=== PATIENT | male | born 1945 | race Caucasian/White ===

== ENCOUNTER → 2018-02-02 11:29 | Outpatient (RCR) | payer MEDICARE, SELFPAY ==
--- NOTE | 2013-09-05 10:34 | TODAY_ITS ---
To: PCP AND CCC Reason for today's visit: [employer] Plan: 09/02/13 - PT COMPLETED APPLICATION AND PAID FEE FOR [employer]. PT WILL BE DOING THE DIABETES EXERCISE PROGRAM. [employer] IDEAS FOR PHYSICAL ACTIVITY AFTER THE PROGRAM ENDS. NO OTHER NEEDS AT THIS TIME. Action Plan: Chronic Condition: Referred to:
== END ==
LOC: CCT 09-02 11:00
PROVIDERS: PCP Nurse Practitioner Adult Health; Visit Provider Family Medicine
DX: 799.89 (principal)

== ENCOUNTER 2018-05-15 19:51 | Emergency (ER) | payer MEDICARE, SELFPAY ==
[2018-05-15 19:56] VITALS: BP 157/64; PULSE 80; RESP 16; TEMP 36.6; O2SAT 97
--- NOTE | 2018-05-15 20:23 | DI.RAD_ITS ---
SYMPTOMS/DIAGNOSIS: PAIN, SWELLING RIGHT ANKLE: Three views. No priors for comparison. No acute fracture or dislocation is seen. Degenerative changes are seen about the ankle. Spurs are seen at the posterior calcaneus. Vascular calcifications are seen. There is generalized soft tissue swelling about the ankle. IMPRESSION: 1. No acute fracture or dislocation. 2. Generalized soft tissue swelling about the ankle.
[2018-05-15 20:45] LABS: Abs Immature Grans 0.03 k/cumm (0.0-0.09); Absolute Basophil Count 0.03 k/cumm (0.0-0.2); Absolute Eosinophil Count 0.21 k/cumm (0.0-0.7); Absolute Lymphocyte Count 1.82 k/cumm (1.2-3.4); Absolute Monocyte Count 0.75 k/cumm (0.11-0.7); Absolute Neutrophil Count 6.36 k/cumm (1.2-6.7); Basophils % 0.3; Eosinophils % 2.3; HCT 37.3 % (40.0-50.0); HGB 12.5 g/dL (13.5-17.5); Immature Grans % 0.3; Lymphocytes % 19.8; Mean Corp. HGB Concentration 33.5 g/dL (32.0-36.0); Mean Corpuscular Hemoglobin 30.7 pg (27.0-33.0); Mean Corpuscular Volume 91.6 fL (80-95); Mean Platelet Volume 9.6 fL (8.0-11.0); Monocytes % 8.2; Neutrophils % 69.1; Platelet Count 195 x1000/uL (130-400); RBC 4.07 m/cumm (4.50-6.00)
[2018-05-15 20:57] LABS: ALT 38 U/L (12-78); AST 15 U/L (15-37); Alkaline Phosphatase 23 U/L (46-116); Anion Gap 11.1 mmol/L (3-11); BUN 17 mg/dL (7-18); Bilirubin, Total 0.4 mg/dL (0.2-1.0); CO2 26.9 mmol/L (21.0-32.0); CREATININE 1.75 mg/dL (0.70-1.30); Calcium 9.4 mg/dL (8.5-10.1); Chloride 98 mmol/L (98-107); Estimated GFR 38.62 (mL/min/1.73m2); Glucose 131 mg/dL (70-100); Potassium 4.8 mmol/L (3.5-5.1); Sodium 136 mmol/L (136-145); Total Protein 8.5 g/dL (6.4-8.2)
[2018-05-15 20:59] LABS: INR 1.1 (1.0-3.5); PTT Activated 26.1 sec (21.0-31.4); Prothrombin Time 10.3 sec (9.3-10.8)
[2018-05-15 21:03] LABS: NT-proBNP 73 pg/mL
[2018-05-15 21:16] LABS: D-Dimer 511 ng/mlFEU (<500)
--- NOTE | 2018-05-15 21:53 | W.ED.GENAD ---
Discharge Plan Disposition Patient Disposition: HOME Condition: Stable Discharge Details Chief Complaint: Orthopedic Clinical Impression: Osteoarthritis of ankle, right, Edema of lower extremity, Decreased calculated GFR Primary Care Provider: Laura Nuñez ED Provider: Oleksandr Lindsay Home Meds and New Rx's Prescriptions: Continue clopidogrel [Plavix] 75 MG tablet 75 mg PO DAILY RF: 0 aspirin [Aspir-81] 81 MG tablet,delayed release (DR/EC) 81 mg PO DAILY RF: 0 lisinopril 20 MG tablet 20 mg PO DAILY RF: 0 nitroglycerin [Nitrostat] 0.4 MG tablet, sublingual 0.4 mg Sublingual ONCE RF: 0 omeprazole 20 MG capsule,delayed release(DR/EC) 40 mg PO HS RF: 0 furosemide 20 MG tablet 20 mg PO DAILY RF: 0 albuterol sulfate [Ventolin HFA] 8 GM HFA aerosol inhaler 1 - 2 puff Inhalation Q6H PRN RF: 0 glipizide 5 MG tablet 5 mg PO BID RF: 0 ISOSORBIDE MONONITRATE 30 MG TAB.ER.24H 60 mg PO DAILY RF: 0 metformin 500 MG tablet 1,000 mg PO BID RF: 0 acetaminophen [Arthritis Pain Reliever] 650 MG tablet extended release 650 mg PO PRN PRNRF: 0 ranitidine HCl [Zantac Maximum Strength] 150 MG tablet 150 mg PO BID RF: 0 flaxseed 340 GM powder 340 gm PO DAILY RF: 0 metoprolol succinate 100 mg Tablet Extended Release 24 Hr 100 mg PO DAILY RF: 0 ezetimibe 10 mg Tablet 10 mg PO DAILY RF: 0 Discharge Instructions Instructions: Impaired Kidney Function (ED), Arthritis (ED) Additional Instructions: He may continue to use acetaminophen, apply ice, and rest the extremity as needed. It is encouraged that you obtain a follow-up appointment with your primary care provider within the next week for recheck of your kidney function. Continue to take your medications as prescribed specifically your furosemide/Lasix Referrals: [facility] [Outside] - 1 week (Follow up with primary care office for recheck of your swelling along with GFR retesting) Medical Decision Making Patient presenting to the emergency department for chief complaint of right ankle pain. Patient states that this seems to have occurred after walking for an extended period of time on Monday, 5 days ago. Patient denies any specific injury or trauma. Patient does state that pain radiates somewhat up in the calf. Patient denies any chest pain, shortness of breath, difficulty breathing, syncope. Physical exam shows tenderness to the lateral malleolus, posterior ankle, and Achilles. Given that patient has a significant heart history plan to do BNP testing, CMP and CBC with specifically looking at GFR, d-dimer, and radiological imaging. Patient did state that he took acetaminophen just prior to arrival that pain is tolerable at this point. Ice was placed upon ankle to help relieve any further swelling discomfort. I am highly suspicious of more arthritic nature to discomfort but of consideration is decreased renal function, CHF, DVT. Review of labs shows a decreased GFR and when compared to previous results from the [facility] decrease is not severe but patient has had trending downward renal function. Also of notation is baseline CBC, within normal limits BNP, and appropriate d-dimer when adjusting for age. Review of radiological imaging shows arthritic changes and some soft tissue swelling otherwise no other acute findings are noted. Patient reassessed and states that he has not been wearing his compression stockings due to them being overly snug but states that he could resume wearing those if recommended. I did inform patient that that would be beneficial to wear these otherwise I encouraged him to continue to rest and elevate the extremity and advance activity as tolerated along with taking acetaminophen as needed for discomfort. Patient was placed up on care management list for assistance in arranging a follow-up appointment with primary care in the next week to have reassessment along with GFR rechecked due to trending downward labs. Patient states clear understanding that he may return for any new or worsening symptoms and emergent needs to return to emergency department was clearly discussed with patient. After discussion of diagnosis and plan of care patient has no further needs, questions, or concerns and states clear understanding to return to the emergency department for any worsening symptoms. HPI General Mode of arrival: wheelchair. Date/Time Provider Initiated Documentation: 05/15/18 20:02. Limitations to Documentation: no limitations. Information obtained by: patient and RN notes reviewed. History of Present Illness 72 year old M presents to the emergency department with the chief complaint of right ankle pain ans swelling, described as moderate, with intensity rated at 6. Quality is described as aching, and is localized to the right and lower extremity. Patient proximal. Patient started experiencing this day(s) (5) and it has been constant. Rest improves symptom(s), Movement worsens symptoms . Patient notes no other symptoms.. Patient did receive the following treatments prior to arrival, other Related Data Home Medications Medication Instructions Recorded Confirmed Isosorbide Mononitrate 60 mg PO DAILY tab-cap 10/22/13 05/15/18 albuterol sulfate [Ventolin HFA] 1 - 2 puff INHALATION Q6H PRN 10/22/13 05/15/18 inhaler aspirin [Aspir-81] 81 mg PO DAILY tab-cap 10/22/13 05/15/18 clopidogrel [Plavix] 75 mg PO DAILY tab-cap 10/22/13 05/15/18 furosemide 20 mg PO DAILY tab-cap 10/22/13 05/15/18 glipizide 5 mg PO BID tab-cap 10/22/13 05/15/18 lisinopril 20 mg PO DAILY tab-cap 10/22/13 05/15/18 nitroglycerin [Nitrostat] 0.4 mg SUBLINGUAL ONCE tab-cap 10/22/13 05/15/18 omeprazole 40 mg PO HS tab-cap 10/22/13 05/15/18 metformin 1,000 mg PO BID tab-cap 11/06/14 05/15/18 acetaminophen [Arthritis Pain 650 mg PO PRN PRN 12/08/15 05/15/18 Reliever] flaxseed 340 gm PO DAILY 12/08/15 05/15/18 ranitidine HCl [Zantac Maximum 150 mg PO BID 12/08/15 05/15/18 Strength] ezetimibe 10 mg PO DAILY 05/15/18 05/15/18 metoprolol succinate 100 mg PO DAILY 05/15/18 05/15/18 Allergies Allergy/AdvReac Type Severity Reaction Status Date / Time [id number] Reductase AdvReac Intermediate Other (See Unverified 05/15/18 20:05 Inhibitor Comment) General Stated Complaint: Orthopedic MEKHI: 3 Review of Systems Constitutional Denies chills, Denies fever(s) and Denies headache(s) ENT Denies headache(s) Cardiovascular Denies chest pain, Denies irregular heart rhythm, Denies claudication, Reports leg edema, Denies lightheadedness and Denies dyspnea Respiratory Denies dyspnea Gastrointestinal Denies abdominal pain Musculoskeletal Reports as per HPI, Reports arthralgias and Denies numbness Neurologic Denies confusion, Denies headache(s) and Denies numbness Psychiatric Denies confusion PFSH Acute myocardial infarction Coronary arteriosclerosis Diabetes mellitus Essential hypertension Gastroesophageal reflux disease Hyperlipidemia Morbid obesity Obstructive sleep apnea syndrome Polyp of colon Psoriasis Coronary artery Bypass Graft Medical History Acute myocardial infarction Coronary arteriosclerosis Diabetes mellitus Essential hypertension Gastroesophageal reflux disease Hyperlipidemia Morbid obesity Obstructive sleep apnea syndrome Polyp of colon Psoriasis Social History Smoking/Tobacco Use Status: Former Tobacco Use Surgical History Coronary artery Bypass Graft Social History Smoking/Tobacco Use Status: Former Tobacco Use Exam Const General: cooperative, healthy appearing, comfortable and no acute distress Orientation: alert, awake and oriented x3 Resp Effort & Inspection: normal respiratory effort and able to speak in complete sentences Auscultation: clear to auscultation bilaterally Cardio Rate: regular rate Rhythm: regular rhythm Heart Sounds: S1 normal and S2 normal Pulses: normal peripheral pulses Neuro General: alert, awake, oriented x3, moves all extremities and no focal motor deficits Extrem Right lower extremity: knee Details: normal to inspection; no tenderness, lower leg Details: normal to inspection and non-pitting edema Details: 1+; no erythema, no tenderness, no localized swelling, no ecchymosis and no deformity, ankle Details: tenderness Location: of the lateral malleolus, of the achilles tendon and posteriorly, edema Details: non-pitting and 1+ and normal ROM; no unusual warmth, no abrasions, no crepitus and achilles tendon exam normal and foot Details: normal capillary refill, normal to inspection, toes with normal ROM, no edema and vascular exam Details: dorsalis pedis pulse present, posterior tibial pulse present and normal capillary refill; no tenderness and no unusual warmth Course Vital Signs Temperature 36.6 C 05/15/18 19:56 Pulse 80 05/15/18 19:56 Respiratory Rate 16 05/15/18 19:56 Blood Pressure 157/64 H 05/15/18 19:56 Pulse Oximetry 97 05/15/18 19:56 Temperature 36.6 C 05/15/18 19:56 Temperature Source Skin 05/15/18 19:56 Pulse 80 05/15/18 19:56 Respiratory Rate 16 05/15/18 19:56 Respiratory Effort 05/15/18 20:01 Blood Pressure 157/64 H 05/15/18 19:56 Blood Pressure Position Sitting 05/15/18 19:56 Pulse Oximetry 97 05/15/18 19:56 Oxygen Delivery Method Room Air 05/15/18 19:56 Oxygen Flow Rate 0 05/15/18 19:56 Pain Level 9 05/15/18 19:56 Lab/Test Results Lab/Test Results: Laboratory Tests Range/Units 05/15/18 05/15/18 05/15/18 20:40 20:40 20:40 WBC (4.4-10.8) k/cumm 9.20 RBC (4.50-6.00) m/cumm 4.07 L Hgb (13.5-17.5) g/dL 12.5 L Hct (40.0-50.0) % 37.3 L MCV (80-95) fL 91.6 MCH (27.0-33.0) pg 30.7 MCHC (32.0-36.0) g/dL 33.5 RDW (11.8-14.1) % 15.0 H Plt Count (130-400) x1000/uL 195 MPV (8.0-11.0) fL 9.6 Immature Gran % 0.3 Neutrophils % 69.1 Lymphocytes % 19.8 Monocytes % 8.2 Eosinophils % 2.3 Basophils % 0.3 Absolute Neutrophils (1.2-6.7) k/cumm 6.36 Absolute Lymphocytes (1.2-3.4) k/cumm 1.82 Absolute Monocytes (0.11-0.7) k/cumm 0.75 H Absolute Eosinophils (0.0-0.7) k/cumm 0.21 Absolute Basophils (0.0-0.2) k/cumm 0.03 PT (9.3-10.8) sec 10.3 INR (1.0-3.5) 1.1 APTT (21.0-31.4) sec 26.1 D-Dimer (<500) ng/mlFEU 511 H Sodium (136-145) mmol/L 136 Potassium (3.5-5.1) mmol/L 4.8 Chloride (98-107) mmol/L 98 Carbon Dioxide (21.0-32.0) mmol/L 26.9 Anion Gap (3-11) mmol/L 11.1 H BUN (7-18) mg/dL 17 Creatinine (0.70-1.30) mg/dL 1.75 H Estimated GFR/1.73 m2 (mL/min/1.73m2) 38.62 Glucose (70-100) mg/dL 131 H Calcium (8.5-10.1) mg/dL 9.4 Total Bilirubin (0.2-1.0) mg/dL 0.4 AST (15-37) U/L 15 ALT (12-78) U/L 38 Alkaline Phosphatase (46-116) U/L 23 L NT-Pro-B Natriuret Pep ( - 299) pg/mL Total Protein (6.4-8.2) g/dL 8.5 H Albumin (3.4-5.0) g/dL 4.0 Range/Units 05/15/18 20:40 WBC (4.4-10.8) k/cumm RBC (4.50-6.00) m/cumm Hgb (13.5-17.5) g/dL Hct (40.0-50.0) % MCV (80-95) fL MCH (27.0-33.0) pg MCHC (32.0-36.0) g/dL RDW (11.8-14.1) % Plt Count (130-400) x1000/uL MPV (8.0-11.0) fL Immature Gran % Neutrophils % Lymphocytes % Monocytes % Eosinophils % Basophils % Absolute Neutrophils (1.2-6.7) k/cumm Absolute Lymphocytes (1.2-3.4) k/cumm Absolute Monocytes (0.11-0.7) k/cumm Absolute Eosinophils (0.0-0.7) k/cumm Absolute Basophils (0.0-0.2) k/cumm PT (9.3-10.8) sec INR (1.0-3.5) APTT (21.0-31.4) sec D-Dimer (<500) ng/mlFEU Sodium (136-145) mmol/L Potassium (3.5-5.1) mmol/L Chloride (98-107) mmol/L Carbon Dioxide (21.0-32.0) mmol/L Anion Gap (3-11) mmol/L BUN (7-18) mg/dL Creatinine (0.70-1.30) mg/dL Estimated GFR/1.73 m2 (mL/min/1.73m2) Glucose (70-100) mg/dL Calcium (8.5-10.1) mg/dL Total Bilirubin (0.2-1.0) mg/dL AST (15-37) U/L ALT (12-78) U/L Alkaline Phosphatase (46-116) U/L NT-Pro-B Natriuret Pep ( - 299) pg/mL 73 Total Protein (6.4-8.2) g/dL Albumin (3.4-5.0) g/dL
--- NOTE | 2018-05-15 21:57 | DI.VRAD_ITS ---
EXAM: XR Right Ankle Complete, 3 or more Views EXAM DATE/TIME: 05/15/2018 8:26 PM CLINICAL HISTORY: 72 years old, male; Condition or disease; Other: Pain, swelling TECHNIQUE: XR Right ankle 3 or more views. COMPARISON: No relevant prior studies available. FINDINGS: There is soft tissue swelling about the ankle. No fracture is identified. There is some spurring along the medial gutter. There is no joint effusion. The talar dome and subtalar joints are normal. Plantar and Achilles tendon spurs of the calcaneus are present. There is also some spurring along the dorsal surface of the talus. Vascular calcifications are present. IMPRESSION: 1. Arthritic changes. 2. Soft tissue swelling. 3. No fracture or bony destruction. Dictated and Authenticated by: Gustavo Newberry MD. Ordering:EDER WHITE MD
--- NOTE | 2018-05-15 21:59 | ED.GENADUL_ITS ---
Discharge Plan Disposition Patient Disposition: HOME Condition: Stable Discharge Details Chief Complaint: Orthopedic Clinical Impression: Osteoarthritis of ankle, right, Edema of lower extremity, Decreased calculated GFR Primary Care Provider: Laura Nuñez ED Provider: Oleksandr Lindsay Home Meds and New Rx's Prescriptions: Continue clopidogrel [Plavix] 75 MG tablet 75 mg PO DAILY RF: 0 aspirin [Aspir-81] 81 MG tablet,delayed release (DR/EC) 81 mg PO DAILY RF: 0 lisinopril 20 MG tablet 20 mg PO DAILY RF: 0 nitroglycerin [Nitrostat] 0.4 MG tablet, sublingual 0.4 mg Sublingual ONCE RF: 0 omeprazole 20 MG capsule,delayed release(DR/EC) 40 mg PO HS RF: 0 furosemide 20 MG tablet 20 mg PO DAILY RF: 0 albuterol sulfate [Ventolin HFA] 8 GM HFA aerosol inhaler 1 - 2 puff Inhalation Q6H PRN RF: 0 glipizide 5 MG tablet 5 mg PO BID RF: 0 ISOSORBIDE MONONITRATE 30 MG TAB.ER.24H 60 mg PO DAILY RF: 0 metformin 500 MG tablet 1,000 mg PO BID RF: 0 acetaminophen [Arthritis Pain Reliever] 650 MG tablet extended release 650 mg PO PRN PRNRF: 0 ranitidine HCl [Zantac Maximum Strength] 150 MG tablet 150 mg PO BID RF: 0 flaxseed 340 GM powder 340 gm PO DAILY RF: 0 metoprolol succinate 100 mg Tablet Extended Release 24 Hr 100 mg PO DAILY RF: 0 ezetimibe 10 mg Tablet 10 mg PO DAILY RF: 0 Discharge Instructions Instructions: Impaired Kidney Function (ED), Arthritis (ED) Additional Instructions: He may continue to use acetaminophen, apply ice, and rest the extremity as needed. It is encouraged that you obtain a follow-up appointment with your primary care provider within the next week for recheck of your kidney function. Continue to take your medications as prescribed specifically your furosemide/ Lasix Referrals: [facility] [Outside] - 1 week (Follow up with primary care office for recheck of your swelling along with GFR retesting) Medical Decision Making Patient presenting to the emergency department for chief complaint of right ankle pain. Patient states that this seems to have occurred after walking for an extended period of time on Monday, 5 days ago. Patient denies any specific injury or trauma. Patient does state that pain radiates somewhat up in the calf. Patient denies any chest pain, shortness of breath, difficulty breathing , syncope. Physical exam shows tenderness to the lateral malleolus, posterior ankle, and Achilles. Given that patient has a significant heart history plan to do BNP testing, CMP and CBC with specifically looking at GFR, d-dimer, and radiological imaging. Patient did state that he took acetaminophen just prior to arrival that pain is tolerable at this point. Ice was placed upon ankle to help relieve any further swelling discomfort. I am highly suspicious of more arthritic nature to discomfort but of consideration is decreased renal function , CHF, DVT. Review of labs shows a decreased GFR and when compared to previous results from the [place] decrease is not severe but patient has had trending downward renal function. Also of notation is baseline CBC, within normal limits BNP, and appropriate d-dimer when adjusting for age. Review of radiological imaging shows arthritic changes and some soft tissue swelling otherwise no other acute findings are noted. Patient reassessed and states that he has not been wearing his compression stockings due to them being overly snug but states that he could resume wearing those if recommended. I did inform patient that that would be beneficial to wear these otherwise I encouraged him to continue to rest and elevate the extremity and advance activity as tolerated along with taking acetaminophen as needed for discomfort. Patient was placed up on care management list for assistance in arranging a follow-up appointment with primary care in the next week to have reassessment along with GFR rechecked due to trending downward labs. Patient states clear understanding that he may return for any new or worsening symptoms and emergent needs to return to emergency department was clearly discussed with patient. After discussion of diagnosis and plan of care patient has no further needs, questions, or concerns and states clear understanding to return to the emergency department for any worsening symptoms. HPI General Mode of arrival: wheelchair . Date/Time Provider Initiated Documentation: 05/15/18 20:02 . Limitations to Documentation: no limitations . Information obtained by: patient and RN notes reviewed . History of Present Illness 72 year old M presents to the emergency department with the chief complaint of right ankle pain ans swelling, described as moderate, with intensity rated at 6. Quality is described as aching, and is localized to the right and lower extremity. Patient proximal. Patient started experiencing this day(s) (5) and it has been constant. Rest improves symptom(s), Movement worsens symptoms . Patient notes no other symptoms.. Patient did receive the following treatments prior to arrival, other Related Data Home Medications Medication Instructions Recorded Confirmed Isosorbide Mononitrate 60 mg PO DAILY tab-cap 10/22/13 05/15/18 albuterol sulfate [Ventolin HFA] 1 - 2 puff INHALATION Q6H PRN 10/22/13 05/15/18 inhaler aspirin [Aspir-81] 81 mg PO DAILY tab-cap 10/22/13 05/15/18 clopidogrel [Plavix] 75 mg PO DAILY tab-cap 10/22/13 05/15/18 furosemide 20 mg PO DAILY tab-cap 10/22/13 05/15/18 glipizide 5 mg PO BID tab-cap 10/22/13 05/15/18 lisinopril 20 mg PO DAILY tab-cap 10/22/13 05/15/18 nitroglycerin [Nitrostat] 0.4 mg SUBLINGUAL ONCE tab-cap 10/22/13 05/15/18 omeprazole 40 mg PO HS tab-cap 10/22/13 05/15/18 metformin 1,000 mg PO BID tab-cap 11/06/14 05/15/18 acetaminophen [Arthritis Pain 650 mg PO PRN PRN 12/08/15 05/15/18 Reliever] flaxseed 340 gm PO DAILY 12/08/15 05/15/18 ranitidine HCl [Zantac Maximum 150 mg PO BID 12/08/15 05/15/18 Strength] ezetimibe 10 mg PO DAILY 05/15/18 05/15/18 metoprolol succinate 100 mg PO DAILY 05/15/18 05/15/18 Allergies Allergy/AdvReac Type Severity Reaction Status Date / Time [id number] Reductase AdvReac Intermediate Other (See Unverified 05/15/18 20 :05 Inhibitor Comment) General Stated Complaint: Orthopedic MEKHI: 3 Review of Systems Constitutional Denies chills, Denies fever(s) and Denies headache(s) ENT Denies headache(s) Cardiovascular Denies chest pain, Denies irregular heart rhythm, Denies claudication, Reports leg edema, Denies lightheadedness and Denies dyspnea Respiratory Denies dyspnea Gastrointestinal Denies abdominal pain Musculoskeletal Reports as per HPI, Reports arthralgias and Denies numbness Neurologic Denies confusion, Denies headache(s) and Denies numbness Psychiatric Denies confusion PFSH Acute myocardial infarction Coronary arteriosclerosis Diabetes mellitus Essential hypertension Gastroesophageal reflux disease Hyperlipidemia Morbid obesity Obstructive sleep apnea syndrome Polyp of colon Psoriasis Coronary artery Bypass Graft Medical History Acute myocardial infarction Coronary arteriosclerosis Diabetes mellitus Essential hypertension Gastroesophageal reflux disease Hyperlipidemia Morbid obesity Obstructive sleep apnea syndrome Polyp of colon Psoriasis Social History Smoking/Tobacco Use Status: Former Tobacco Use Surgical History Coronary artery Bypass Graft Social History Smoking/Tobacco Use Status: Former Tobacco Use Exam Const General: cooperative, healthy appearing, comfortable and no acute distress Orientation: alert, awake and oriented x3 Resp Effort & Inspection: normal respiratory effort and able to speak in complete sentences Auscultation: clear to auscultation bilaterally Cardio Rate: regular rate Rhythm: regular rhythm Heart Sounds: S1 normal and S2 normal Pulses: normal peripheral pulses Neuro General: alert, awake, oriented x3, moves all extremities and no focal motor deficits Extrem Right lower extremity: knee Details: normal to inspection; no tenderness, lower leg Details: normal to inspection and non-pitting edema Details: 1+; no erythema , no tenderness, no localized swelling, no ecchymosis and no deformity, ankle Details: tenderness Location: of the lateral malleolus, of the achilles tendon and posteriorly, edema Details: non-pitting and 1+ and normal ROM; no unusual warmth, no abrasions, no crepitus and achilles tendon exam normal and foot Details: normal capillary refill, normal to inspection, toes with normal ROM, no edema and vascular exam Details: dorsalis pedis pulse present, posterior tibial pulse present and normal capillary refill; no tenderness and no unusual warmth Course Vital Signs Temperature 36.6 C 05/15/18 19:56 Pulse 80 05/15/18 19:56 Respiratory Rate 16 05/15/18 19:56 Blood Pressure 157/64 H 05/15/18 19:56 Pulse Oximetry 97 05/15/18 19:56 Temperature 36.6 C 05/15/18 19:56 Temperature Source Skin 05/15/18 19:56 Pulse 80 05/15/18 19:56 Respiratory Rate 16 05/15/18 19:56 Respiratory Effort 05/15/18 20:01 Blood Pressure 157/64 H 05/15/18 19:56 Blood Pressure Position Sitting 05/15/18 19:56 Pulse Oximetry 97 05/15/18 19:56 Oxygen Delivery Method Room Air 05/15/18 19:56 Oxygen Flow Rate 0 05/15/18 19:56 Pain Level 9 05/15/18 19:56 Lab/Test Results Lab/Test Results: Laboratory Tests Range/Units 05/15/18 05/15/18 05/15/18 20:40 20:40 20:40 WBC (4.4-10.8) k/cumm 9.20 RBC (4.50-6.00) m/cumm 4.07 L Hgb (13.5-17.5) g/dL 12.5 L Hct (40.0-50.0) % 37.3 L MCV (80-95) fL 91.6 MCH (27.0-33.0) pg 30.7 MCHC (32.0-36.0) g/dL 33.5 RDW (11.8-14.1) % 15.0 H Plt Count (130-400) x1000/uL 195 MPV (8.0-11.0) fL 9.6 Immature Gran % 0.3 Neutrophils % 69.1 Lymphocytes % 19.8 Monocytes % 8.2 Eosinophils % 2.3 Basophils % 0.3 Absolute Neutrophils (1.2-6.7) k/cumm 6.36 Absolute Lymphocytes (1.2-3.4) k/cumm 1.82 Absolute Monocytes (0.11-0.7) k/cumm 0.75 H Absolute Eosinophils (0.0-0.7) k/cumm 0.21 Absolute Basophils (0.0-0.2) k/cumm 0.03 PT (9.3-10.8) sec 10.3 INR (1.0-3.5) 1.1 APTT (21.0-31.4) sec 26.1 D-Dimer (<500) ng/mlFEU 511 H Sodium (136-145) mmol/L 136 Potassium (3.5-5.1) mmol/L 4.8 Chloride (98-107) mmol/L 98 Carbon Dioxide (21.0-32.0) mmol/L 26.9 Anion Gap (3-11) mmol/L 11.1 H BUN (7-18) mg/dL 17 Creatinine (0.70-1.30) mg/dL 1.75 H Estimated GFR/1.73 m2 (mL/min/1.73m2) 38.62 Glucose (70-100) mg/dL 131 H Calcium (8.5-10.1) mg/dL 9.4 Total Bilirubin (0.2-1.0) mg/dL 0.4 AST (15-37) U/L 15 ALT (12-78) U/L 38 Alkaline Phosphatase (46-116) U/L 23 L NT-Pro-B Natriuret Pep ( - 299) pg/mL Total Protein (6.4-8.2) g/dL 8.5 H Albumin (3.4-5.0) g/dL 4.0 Range/Units 05/15/18 20:40 WBC (4.4-10.8) k/cumm RBC (4.50-6.00) m/cumm Hgb (13.5-17.5) g/dL Hct (40.0-50.0) % MCV (80-95) fL MCH (27.0-33.0) pg MCHC (32.0-36.0) g/dL RDW (11.8-14.1) % Plt Count (130-400) x1000/uL MPV (8.0-11.0) fL Immature Gran % Neutrophils % Lymphocytes % Monocytes % Eosinophils % Basophils % Absolute Neutrophils (1.2-6.7) k/cumm Absolute Lymphocytes (1.2-3.4) k/cumm Absolute Monocytes (0.11-0.7) k/cumm Absolute Eosinophils (0.0-0.7) k/cumm Absolute Basophils (0.0-0.2) k/cumm PT (9.3-10.8) sec INR (1.0-3.5) APTT (21.0-31.4) sec D-Dimer (<500) ng/mlFEU Sodium (136-145) mmol/L Potassium (3.5-5.1) mmol/L Chloride (98-107) mmol/L Carbon Dioxide (21.0-32.0) mmol/L Anion Gap (3-11) mmol/L BUN (7-18) mg/dL Creatinine (0.70-1.30) mg/dL Estimated GFR/1.73 m2 (mL/min/1.73m2) Glucose (70-100) mg/dL Calcium (8.5-10.1) mg/dL Total Bilirubin (0.2-1.0) mg/dL AST (15-37) U/L ALT (12-78) U/L Alkaline Phosphatase (46-116) U/L NT-Pro-B Natriuret Pep ( - 299) pg/mL 73 Total Protein (6.4-8.2) g/dL Albumin (3.4-5.0) g/dL
[2018-05-15 22:50] VITALS: BP 145/72; PULSE 84; RESP 16; TEMP 36.6; O2SAT 97
== END 2018-05-15 22:50 | disposition home or self-care (01) ==
PROVIDERS: Emergency Provider Nurse Practitioner Family; PCP Nurse Practitioner Adult Health
DX: M19.071 Primary osteoarthritis, right ankle and foot (principal); R60.0 Localized edema; R94.4 Abnormal results of kidney function studies
CPT/HCPCS: 36415; 80053; 99283; 73610; 83880; 85025; 85379; 85610; 85730

== ENCOUNTER → 2018-11-29 09:40 | Outpatient (BNVA) | payer MEDICARE, SELFPAY | PROVIDERS: PCP Nurse Practitioner Adult Health; Referring Provider Physician Assistant Medical; Visit Provider Psychiatry & Neurology Neurology | DX: G25.0 Essential tremor (principal); H02.402 Unspecified ptosis of left eyelid; E11.9 Type 2 diabetes mellitus without complications; Z79.84 Long term (current) use of oral hypoglycemic drugs; I10 Essential (primary) hypertension | CPT/HCPCS: 99215 ==

== ENCOUNTER 2019-01-25 01:02 | Outpatient (CLI) | payer OTHER, MEDICARE, SELFPAY ==
--- NOTE | 2019-01-25 12:14 | DI.CT_ITS ---
SYMPTOM/DIAGNOSIS: 2 WEEK MALAISE. RT NECK SWELLING CT BRAIN: Noncontrast. No priors. The ventricles and sulci are consistent with the patient's age. There are areas of decreased attenuation in the white matter most consistent with small vessel ischemic disease. No acute territorial infarct, hemorrhage, midline shift or mass effect is identified. The ventricles are within normal limits. The visualized paranasal sinuses are clear as are the mastoid air cells. The calvarium is intact. IMPRESSION: Age appropriate cerebral atrophy and small vessel ischemic disease. No acute intracranial process.
[2019-01-25] MEDS: Omnipaque 350 MG/ML 100 ML BTL IJ (12:16)
--- NOTE | 2019-01-25 12:18 | DI.CT_ITS ---
SYMPTOM/DIAGNOSIS: 2 WEEK MALAISE, RT NECK SWELLING CT NECK: CT scan of the neck was performed following the uneventful administration of intravenous contrast material. The visualized intracranial structures are unremarkable. The orbits and retro orbital soft tissues are unremarkable. There is mild mucosal thickening seen in the left maxillary sinus. The remaining visualized paranasal sinuses are clear. No fluid levels are seen. The mastoid air cells are well pneumatized. The parotid, submandibular and thyroid glands are grossly unremarkable. No significant cervical adenopathy is present. The nasopharynx, oral pharynx, hypopharynx and larynx are unremarkable as is the retropharyngeal space. No evidence of a solid or cystic soft tissue mass is present. The lung apices are clear. Degenerative changes are seen in the spine. IMPRESSION: No acute abnormality.
== END 2019-01-25 01:22 ==
PROVIDERS: PCP Physician Assistant Medical; Visit Provider Nurse Practitioner Gerontology
DX: R22.1 Localized swelling, mass and lump, neck (principal); R53.81 Other malaise; G31.89 Other specified degenerative diseases of nervous system
CPT/HCPCS: 70491; 70450; J3490

== ENCOUNTER 2021-10-01 11:31 | Outpatient (REF) | payer MEDICARE, SELFPAY ==
--- NOTE | 2021-10-01 11:00 | SKI_PTH ---
PATIENT: Benjamin Miller LOC: [facility] U#:[id number] AGE/SX: 76/M ROOM: RE10/01/[address]: PRABHAKAR Mendoza : 1945 BED: DIS: 10/01/2021 SPEC #: [id number] RECD: 10/01/21 17:26 STATUS: TRINI RENataly #: [id number] DOROTHY: 10/01/21 11:[address]: Sergo Ross DEPT: Surgical Specimen RECD BY: Estefany Carter ENTERED: 10/01/21 17:26 SP TYPE: TOBY GUERRA DR: Chirag Tobar Tissues: 1 - SKIN BIOPSY(SHAVE/PUNCH) Procedures: SKIN LEVEL 4 Comments: [id number]
== END 2021-10-01 11:32 | disposition home or self-care (01) ==
LOC: LBN 11:31
PROVIDERS: PCP Physician Assistant Medical; Visit Provider Physician Assistant
DX: L57.0 Actinic keratosis (principal)
CPT/HCPCS: 88305

== ENCOUNTER 2021-10-07 22:30 | Observation (INO) | payer MEDICARE, SELFPAY ==
[2021-10-07] VITALS (13 sets, daily range): BP systolic 155–172; BP diastolic 51–127; PULSE 70–85; RESP 11–21; TEMP 36.3; O2SAT 94–99
--- NOTE | 2021-10-07 22:30 | RT.EKG_ITS ---
APPROVED REPORT Exam: Resting ECG Reason for Exam: chest pain Patient Location: E HR:83 bpm ECG Measurements Heart Rate 83 AXIS HI 160 P 56 QRSd 147 QRS -15 QT 410 T 82 QTc 482 Conclusion Sinus rhythm...normal P axis, V-rate 60- 99 Right bundle branch block...QRSd>120, terminal axis(90,270) Inferolateral infarct, old...Q >40mS, inf-lat leads
--- NOTE | 2021-10-07 22:45 | DI.RAD_ITS ---
Exam(s) XR CHEST 2V PA LATERAL EXAM: XR CHEST 2V PA LATERAL CLINICAL HISTORY: chest pain. TECHNIQUE: 2D digital imaging was performed. COMPARISON: No exams were available for comparison FINDINGS: 2 views: There is sternotomy wires. Heart size is normal. The mediastinum is not widened. Lungs are clear. No infiltrates nor pleural effusions. IMPRESSION: No acute pulmonary findings.There has been previous sternotomy. DATA REPOSITORY: RADIATION DOSE DELIVERED:
--- NOTE | 2021-10-07 22:48 | ED.GENADUL_ITS ---
Discharge Plan Disposition Patient Disposition: [facility] INPATIENT Condition: Improving Discharge Details Clinical Impression: Chest pain Admit Date/Time: 10/08/21 00:54 Admit Provider: Vasu Peraza Attending Provider: Vasu Peraza Primary Care Provider: Chirag Tobar ED Provider: Asa Fontana Discharge Data Discharge Date/Time-TO BE ENTERED AT DEPARTURE: 10/08/21 02:10 Medical Decision Making 76 yo male s/p CABG in 2011, DM-presents wuth c/o Chest pressure that resolved after NTG x 3 Presents to the Asymptomatic yet worried about his heart EKG at 22:37 - NSR, RBBB, No ischemia Plan - serial troponins , ASA ,CXR HPI General Date/Time Provider Initiated Documentation: 10/07/21 22:48 . HPI Narrative: 76-year-old gentleman presents to the emergency department with a chief complaint chest pressure. He states that chest pressure started approximately 8 after having gone to the bathroom. Pressure was anterior aspect of his chest. No radiation. Acute onset. Relieved with nitroglycerin x3, he states that the nitro is somewhat old over a year and a half and he does not feel much of a tingling under the tongue. Not associated with nausea or vomiting. Not associated with shortness of breath. No diaphoresis. He states that he has been taking nitroglycerin intermittently for the past 4 months. The last time he saw his program manufacturing leader was 8 months ago for routine follow-up. Related Data Home Medications Medication Instructions Recorded Confirmed Isosorbide Mononitrate 60 mg PO DAILY 10/22/13 10/08/21 albuterol sulfate 90 mcg/actuation 1 - 2 puff inhalation Q6H PRN PRN 10/22/13 10/08/21 aerosol inhaler (Ventolin HFA) aspirin 81 mg tablet,delayed 81 mg PO DAILY 10/22/13 10/08/21 release (Aspir-) clopidogrel 75 mg tablet (Plavix) 75 mg PO DAILY 10/22/13 10/08/21 furosemide 20 mg tablet 20 mg PO DAILY 10/22/13 10/08/21 glipizide 5 mg tablet 5 mg PO DAILY 10/22/13 10/08/21 lisinopril 20 mg tablet 20 mg PO DAILY 10/22/13 10/08/21 nitroglycerin 0.4 mg sublingual 0.4 mg sublingual ONCE PRN 10/22/13 10/08/21 tablet (Nitrostat) metformin 500 mg tablet 500 mg PO BID 11/06/14 10/08/21 acetaminophen 650 mg 650 mg PO PRN PRN 12/08/15 10/08/21 tablet,extended release (Arthritis Pain Reliever) ezetimibe 10 mg tablet 10 mg PO DAILY 05/15/18 10/08/21 metoprolol succinate 100 mg 100 mg PO DAILY 05/15/18 10/08/21 tablet,extended release 24 hr pinsxcumjpjs-ezg-wfruu acid-vit 1 tab PO DAILY 11/29/18 10/08/21 K-lycop 400 mcg-20 mcg-370 mcg tablet (Men's 50 Plus Multivitamin) omega-3 fatty acids-fish oil 360 1 cap PO DAILY 11/29/18 10/08/21 mg-1,200 mg capsule (Fish Oil) abiraterone 250 mg tablet 1,000 mg PO DAILY 10/08/21 10/08/21 amlodipine 5 mg tablet 5 mg PO DAILY #30 tabs 10/08/21 empagliflozin 25 mg tablet 12.5 mg PO DAILY 10/08/21 10/08/21 pantoprazole 20 mg tablet,delayed 20 mg PO DAILY 10/08/21 10/08/21 release prednisone 5 mg tablet 5 mg PO DAILY 10/08/21 10/08/21 Previous Rx's Medication Instructions Recorded amlodipine 5 mg tablet 5 mg PO DAILY #30 tabs 10/08/21 Allergies Allergy/AdvReac Type Severity Reaction Status Date / Time [id number]-[id number] Reductase AdvReac Intermediate Other (See Unverified 10/08/21 00:44 Inhibitor Comment) [Xnmtkhz-Bga-Xqc Reductase Inhibitor] General Stated Complaint: Chest Pain MEKHI: 2 Review of Systems Narrative: Constitutional Constitutional:?Denies chills, Denies fever(s) and Denies headache(s) ENT Ears, Nose, Mouth, and Throat:?Denies headache(s) Cardiovascular Cardiovascular:?Denies chest pain, Denies irregular heart rhythm, Denies claudication, Reports leg edema, Denies lightheadedness and Denies dyspnea Respiratory Respiratory:?Denies dyspnea Gastrointestinal Gastrointestinal:?Denies abdominal pain Musculoskeletal Musculoskeletal:?No arthralgias and Denies numbness Neurologic Neurologic:?Denies confusion, Denies headache(s) and Denies numbness Psychiatric Psychiatric:?Denies confusion PFSH All Active Problems (Updated 10/09/21 @ 00:01 by HIMANSHU LUU) RBBB (Acute) Sensorineural hearing loss of both ears (Acute) Tinnitus (Acute) Abnormal auditory perception (Acute) PVD (peripheral vascular disease) (Chronic) Ptosis, left eyelid (Acute) Essential tremor (Chronic) Surgical History Coronary artery Bypass Graft 2 vessel S/P anal fissurectomy S/P appendectomy S/P femoropopliteal bypass surgery Family History Mother Heart disease Social History Smoking/Tobacco Use Status: Former Tobacco Use Smoking risk assessment performed?: Yes Alcohol Intake: never Drug use: Never 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 Do you feel safe in your relationship?: Yes Exam Narrative Exam Narrative: General:?cooperative, healthy appearing, comfortable and no acute distress Orientation:?alert, awake and oriented x3 HEENT WNL Neck supple no JVD Resp Effort & Inspection:?normal respiratory effort and able to speak in complete sentences Auscultation:?clear to auscultation bilaterally Cardio Rate:?regular rate Rhythm:?regular rhythm Heart Sounds:?S1 normal and S2 normal Pulses:?normal peripheral pulses ABD S ND NT Ext lower ext edema 1+ Neuro General:?patient alert, patient awake, patient oriented x3, moves all extremities and no focal motor deficits Extrem Right lower extremity:?knee, lower leg, ankle and foot Psych normal mood and affect Course patient s/o Dr Fontana Vital Signs Vital signs: Vital Signs Temperature 36.3 C L 10/07/21 22:42 Pulse 79 10/07/21 22:42 Respiratory Rate 18 10/07/21 22:42 Blood Pressure 160/90 H 10/07/21 22:42 Pulse Oximetry 97 10/07/21 22:42 Temperature 36.3 C L 10/07/21 22:42 Temperature Source Temporal Artery Scan 10/07/21 22:42 Pulse 79 10/07/21 22:42 Respiratory Rate 18 10/07/21 22:42 Respiratory Effort 10/07/21 22:44 Blood Pressure 160/90 H 10/07/21 22:42 Blood Pressure Position Sitting 10/07/21 22:42 Pulse Oximetry 97 10/07/21 22:42 Pain Level 0 10/07/21 22:42 Sign Out Sign Out Data: Sign Out Comment: 86 yo male with CAD s/p CABG, DM and prostate CA undergoing chemotherapty for one year , presents with SSCP that resolved with 3 NTG at home , the pain lasted apporx 20 minutes and started after going to the bathroom. He arrives to the ED painfree. PLan : ACS workup . Repeat trop and EKG in 4 hours Last updated by Damon Rees MD at 10/07/21 23:13
[2021-10-07] MEDS: Aspirin 81 MG CHEW 324 MG CH (23:04)
[2021-10-07 23:07] LABS: Abs Immature Grans 0.07 10^3/uL (0.0-0.06); Absolute Basophil Count 0.06 10^3/uL (0.0-0.2); Absolute Eosinophil Count 0.21 10^3/uL (0.0-0.7); Absolute Lymphocyte Count 2.51 10^3/uL (1.2-3.4); Absolute Monocyte Count 0.56 10^3/uL (0.1-0.8); Absolute Neutrophil Count 4.65 10^3/uL (1.2-6.7); Basophils % 0.7; Eosinophils % 2.6; HCT 36.7 % (40.0-50.0); HGB 11.8 g/dL (13.5-17.5); Immature Grans % 0.9; Lymphocytes % 31.1; MCH 29.9 pg (27.0-33.0); MCHC 32.2 % (32.0-36.0); MCV 93 fL (80-95); MPV 9.5 fL (8.0-11.0); Monocytes % 6.9; Neutrophils % 57.8; Platelet Count 212 10^3/uL (130-400); RBC 3.94 10^6/uL (4.36-5.78); RDW 15.6 % (11.8-14.1); RDW-SD 53.2 fL; WBC 8.06 10^3/uL (4.4-10.8)
[2021-10-07 23:26] LABS: ALT 24 U/L (16-63); AST 10 U/L (15-37); Alkaline Phosphatase 35 U/L (46-116); Anion Gap 8.2 mmol/L (3-11); BUN 19 mg/dL (7-18); Bilirubin, Total 0.3 mg/dL (0.2-1.0); CO2 29.8 mmol/L (21.0-32.0); CREATININE 1.2 mg/dL (0.70-1.30); Calcium 9.4 mg/dL (8.5-10.1); Chloride 99 mmol/L (98-107); Estimated GFR 59.02 (mL/min/1.73m2); Glucose 137 mg/dL (74-106); Magnesium 2.1 mg/dL (1.8-2.4); NT-proBNP 91 pg/mL (<300); Sodium 137 mmol/L (136-145); Troponin I < 50 ng/L (<or=60)
[2021-10-07] MEDS: Lidocaine 2% Viscous 15 ML CUP (23:39)
[2021-10-07] MEDS: Mylanta Suspension 30 ML CUP (23:39)
--- NOTE | 2021-10-07 23:48 | DI.VRAD_ITS ---
PROCEDURE INFORMATION: Exam: XR Chest Exam date and time: 10/07/2021 23:15 Age: 76 years old Clinical indication: Pain; Left-sided; Additional info: Chest pain TECHNIQUE: Imaging protocol: XR of the chest. Views: 2 views. COMPARISON: CT neck w 01/25/2019 12:18 FINDINGS: Lungs: Mild hyperinflation without airspace consolidation. Pleural spaces: No pleural effusion. No pneumothorax. Heart/Mediastinum: No cardiomegaly. Bones/joints: Median sternotomy wires. No displaced fracture. IMPRESSION: Mild hyperinflation without airspace consolidation. Dictated and Authenticated by: Preeti Jordan MD. Ordering:COLLEEN Jose MD
[2021-10-08] VITALS (27 sets, daily range): BP systolic 128–166; BP diastolic 50–85; PULSE 62–82; RESP 14–20; TEMP 36.4–36.6; O2SAT 93–98
--- NOTE | 2021-10-08 00:30 | W.EDPROG ---
Date of service: 10/08/21 Time of Service: 00:31 Medical Decision Making Patient was signed out by Dr. Rees, please see his documentation regarding initial ED presentation and course. Plan at signout was to follow-up on chest x-ray, plan for serial troponins and admission for rule out ACS. Initial troponin negative at time of signout and patient noted to be chest pain-free after nitroglycerin that he took at home. Labs reviewed and nondiagnostic. Delta troponin pending. EKG is nondiagnostic. Chest x-ray was interpreted by radiology: Mild hyperinflation without airspace consolidation. I called and spoke with on-call hospitalist, Dr. Peraza, discussed ED presentation course, he will admit the patient and recommends bridging orders be placed as observation status to the floor. Lab Data Lab results reviewed: Yes I reviewed the patient's lab results. Labs: Laboratory Tests Range/Units 10/07/21 10/07/21 22:56 22:56 WBC (4.4-10.8) 10^3/uL 8.06 RBC (4.36-5.78) 10^6/uL 3.94 L Hgb (13.5-17.5) g/dL 11.8 L Hct (40.0-50.0) % 36.7 L MCV (80-95) fL 93 MCH (27.0-33.0) pg 29.9 MCHC (32.0-36.0) % 32.2 RDW (11.8-14.1) % 15.6 H Plt Count (130-400) 10^3/uL 212 MPV (8.0-11.0) fL 9.5 Immature Gran % 0.9 Neutrophils % 57.8 Lymphocytes % 31.1 Monocytes % 6.9 Eosinophils % 2.6 Basophils % 0.7 Nucleated RBC % (0.0-0.3) % 0.0 Absolute Neutrophils (1.2-6.7) 10^3/uL 4.65 Absolute Lymphocytes (1.2-3.4) 10^3/uL 2.51 Absolute Monocytes (0.1-0.8) 10^3/uL 0.56 Absolute Eosinophils (0.0-0.7) 10^3/uL 0.21 Absolute Basophils (0.0-0.2) 10^3/uL 0.06 Sodium (136-145) mmol/L 137 Potassium (3.5-5.1) mmol/L 4.0 Chloride (98-107) mmol/L 99 Carbon Dioxide (21.0-32.0) mmol/L 29.8 Anion Gap (3-11) mmol/L 8.2 BUN (7-18) mg/dL 19 H Creatinine (0.70-1.30) mg/dL 1.2 Estimated GFR/1.73 m2 (mL/min/1.73m2) 59.02 Glucose (74-106) mg/dL 137 H Calcium (8.5-10.1) mg/dL 9.4 Magnesium (1.8-2.4) mg/dL 2.1 Total Bilirubin (0.2-1.0) mg/dL 0.3 AST (15-37) U/L 10 L ALT (16-63) U/L 24 Alkaline Phosphatase (46-116) U/L 35 L Troponin I (<or=60) ng/L < 50 NT-Pro-B Natriuret Pep (<300) pg/mL 91 Total Protein (6.4-8.2) g/dL 8.0 Albumin (3.4-5.0) g/dL 4.0 Sign Out Sign Out Data: Sign Out Comment: 86 yo male with CAD s/p CABG, DM and prostate CA undergoing chemotherapty for one year , presents with SSCP that resolved with 3 NTG at home , the pain lasted apporx 20 minutes and started after going to the bathroom. He arrives to the ED painfree. PLan : ACS workup . Repeat trop and EKG in 4 hours Last updated by Damon Rees MD at 10/07/21 23:13 Discharge Plan Disposition Patient Disposition: [facility] INPATIENT Condition: Serious Discharge Details Chief Complaint: Chest Pain Clinical Impression: Chest pain Primary Care Provider: Chirag Tobar ED Provider: Asa Fontana Home Meds and New Rx's Prescriptions: No Action omega-3 fatty acids-fish oil [Fish Oil] 360-1,200 mg capsule 1 cap PO DAILY 0RF ferrous sulfate [Iron (ferrous sulfate)] 325 mg (65 mg iron) tablet 325 mg PO DAILY 0RF Men's 50 Plus Multivitamin 400-20-370 mcg tablet 1 tab PO DAILY 0RF tamsulosin 0.4 mg capsule 0.4 mg PO DAILY 0RF Asmanex Twisthaler 110 mcg (30 doses) aerosol powdr breath activated 2 inh IH BID 0RF mecobalamin (vitamin B12) 1,000 mcg tablet,disintegrating 1,000 mcg SL DAILY 0RF cholecalciferol (vitamin D3) 1,000 unit capsule 1,000 unit PO DAILY 0RF clopidogrel [Plavix] 75 MG tablet 75 mg PO DAILY 0RF aspirin [Aspir-81] 81 MG tablet,delayed release (DR/EC) 81 mg PO DAILY 0RF lisinopril 20 MG tablet 20 mg PO DAILY 0RF nitroglycerin [Nitrostat] 0.4 MG tablet, sublingual 0.4 mg Sublingual ONCE 0RF omeprazole 20 MG capsule,delayed release(DR/EC) 40 mg PO HS 0RF furosemide 20 MG tablet 20 mg PO DAILY 0RF albuterol sulfate [Ventolin HFA] 8 GM HFA aerosol inhaler 1 - 2 puff Inhalation Q6H PRN 0RF glipizide 5 MG tablet 5 mg PO BID 0RF ISOSORBIDE MONONITRATE 30 MG TAB.ER.24H 60 mg PO DAILY 0RF metformin 500 MG tablet 500 mg PO BID 0RF acetaminophen [Arthritis Pain Reliever] 650 MG tablet extended release 650 mg PO PRN PRN0RF ranitidine HCl [Zantac Maximum Strength] 150 MG tablet 150 mg PO BID 0RF flaxseed 340 GM powder 340 gm PO DAILY 0RF metoprolol succinate 100 mg Tablet Extended Release 24 Hr 100 mg PO DAILY 0RF ezetimibe 10 mg Tablet 10 mg PO DAILY 0RF pantoprazole 20 mg Tablet,Delayed Release (Dr/Ec) 20 mg PO DAILY 0RF empagliflozin 25 mg Tablet 12.5 mg PO DAILY 0RF prednisone 5 mg Tablet 5 mg PO DAILY 0RF abiraterone 250 mg Tablet 1,000 mg PO DAILY 0RF
[2021-10-08 01:17] LABS: Source Nasal/Nares
[2021-10-08] MEDS: Normal Saline 1,000 ML 125 ML IV (02:33)
[2021-10-08 03:20] LABS: Troponin I < 50 ng/L (<or=60)
--- NOTE | 2021-10-08 06:45 | RT.EKG_ITS ---
APPROVED REPORT Exam: Resting ECG Reason for Exam: chest pain Patient Location: I HR:66 bpm ECG Measurements Heart Rate 66 AXIS WY 170 P 48 QRSd 150 QRS -18 QT 427 T 109 QTc 448 Conclusion Sinus rhythm...normal P axis, V-rate 50- 99 Atrial premature complex...SV complex w/ short R-R interval Right bundle branch block...QRSd>120, terminal axis(90,270)
[2021-10-08 07:51] LABS: Troponin I < 50 ng/L (<or=60)
[2021-10-08] MEDS: Empaglifozin 25 MG TAB 12.5 MG PO (08:55)
[2021-10-08] MEDS: Clopidogrel 75 MG TAB PO (08:56)
[2021-10-08] MEDS: metFORMIN 500 MG TAB PO (08:56)
[2021-10-08] MEDS: Metoprolol CR 100 MG TABCR PO (08:56)
[2021-10-08] MEDS: Lisinopril 20 MG TAB PO (08:56)
[2021-10-08] MEDS: Aspirin E.C. 81 MG TABEC PO (08:56)
[2021-10-08] MEDS: Furosemide 20 MG TAB PO (08:56)
[2021-10-08] MEDS: Ezetimibe 10 MG TAB PO (08:56)
[2021-10-08] MEDS: Isosorbide Mononitrate 60 MG TABCR PO (08:56)
[2021-10-08 09:21] LABS: COVID-19 PCR Negative (Negative)
--- NOTE | 2021-10-08 09:25 | INITIAL_ITS ---
- If Service Date Differs Date of service: 10/08/21 Time of Service: 09:25 Care Management Initial Assess REASON FOR HOSPITALIZATION:: chest pain PAST MEDICAL HISTORY/PAST SURGICAL HISTORY:: All Active Problems (Updated 12/27/18 @ 14:14 by Oneyda Boothe). Sensorineural hearing loss of both ears (Acute). Tinnitus (Acute). Abnormal auditory perception (Acute). PVD (peripheral vascular disease) (Chronic). Ptosis, left eyelid (Acute). Essential tremor (Chronic). Surgical History . Coronary artery Bypass Graft. 2 vessel. S/P anal fissurectomy. S/P appendectomy. S/P femoropopliteal bypass surgery PREVIOUS FUNCTIONAL STATUS/SOCIAL/FAMILY SUPPORTS:: Benjamin lives in [facility] in a single family home with his partner Levi. 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 He receives no services and uses a cane for ambulatory support. CURRENT FUNCTIONAL STATUS:: Joel was sitting up in a chair when CM met with dayna thompson. He was plreasant and cooperative with answering questions. Joel informed Cm that he is to be discharged today and does not need any services. ADVANCE DIRECTIVES:: none on file Has patient been provided with info about the portal/API?: Yes Did the patient sign up for the portal?: No CODE STATUS:: Full Code INSURANCE COVERAGE / FINANCIAL ISSUES:: Medicare CURRENT HOME/COMMUNITY SERVICES/EQUIPMENT:: uses a cane PRIMARY CARE PHYSICIAN:: Chirag Tobar POTENTIAL DISCHARGE NEEDS:: Follow up with PCP, Cardiology and plan of care PATIENT/FAMILY EDUCATION NEEDS:: Review of discharge instructions, limitations, follow up plan, activity, and Ask Me Three PLAN:: Joel will be discharged home with no new services. He will follow up with his community providers and plan of care and transport with his partner.
--- NOTE | 2021-10-08 09:29 | HPE_ITS ---
Assessment and Plan Assessment and plan (1) Chest pain: Status: Acute Assessment and plan: He has a history of coronary artery disease with stents. His current evaluation shows right bundle branch block with some ST changes that could be due to his coronary artery disease or right bundle branch block. Electrocardiogram from last night had some baseline artifact but today's cardiogram shows more than definite ST depression lead I, aVL and V4 through 6. His troponin is pending this morning. I did request a nuclear imaging study of his heart today but has not available so we will probably increase his antianginal therapy and schedule outpatient imaging study soon. His blood pressure control is not ideal and his normal saline will be stopped. His activity can be increased today. (2) Gastroesophageal reflux disease: Status: None Assessment and plan: He wonders whether his current symptoms from last night could be related to g astroesophageal reflux disease. I will continue his pantoprazole at this time. (3) Diabetes mellitus: Status: None Assessment and plan: We will monitor his diabetes management here. (4) RBBB: Status: Acute Assessment and plan: His heart will be monitored while here. History of Present Illness History of Present Illness Chief Complaint: chest pain Narrative: This 26-year-old male is here because of chest pain. He came on last night about 830 or 9 PM. This was associated with he was going to the bathroom. He felt dizzy and he had a left-sided chest pain. He took 3 sublingual nitroglycerin tablets with resolution. He thinks now is probably may have been related to his gastroesophageal reflux. He had a lot of associated with rectal and upper GI gas last night. He had not had his soup previously. He has been treating himself with a bland diet and thinks that overall his gastroesophageal reflux symptoms have improved. He has a history of coronary artery disease with a coronary artery bypass about 10 years ago. He pulled out a note from a [employer] which showed that he had stents placed in August 2010, May, and 2 stents in June 20 and 2012. He says he used nitro about 2 to 3 weeks ago with resolution. He cannot recall if he was active at the time but thinks he is at rest. He gets his primary care in [facility]. He smokes cigarettes but quit about 20 years ago. He uses alcohol very occasional ly. He has a reactionto statins but cannot remember what his reaction is. He has a history of prostate cancer and is currently receiving treatment for this. He thinks he might require radiation therapy and will be seeing his urologist for follow-up soon. He lives with his male partner. He has no children. He has been vaccinated to COVID and has received a booster. He has not had any recent travel. He has not been around anybody has been ill. He does not get regular exercise. Review of Systems Constitutional Constitutional: Denies chills, Denies fever(s), Denies headache(s) and Denies weakness ENT Ears, Nose, Mouth, and Throat: Reports dizziness and Denies headache(s) Cardiovascular Cardiovascular: Reports chest pain, Denies syncope, Denies rapid heart rate, Denies claudication, Reports leg edema, Denies radiating jaw, neck or arm pain and Denies dyspnea Respiratory Respiratory: Denies cough, Denies dyspnea and Denies wheezing Gastrointestinal Gastrointestinal: Reports abdominal pain (occasional abd pain.), Reports dyspepsia, Reports heartburn, Denies diarrhea, Denies nausea and Denies vomiting Genitourinary Genitourinary: Reports difficulty urinating and Reports urinary urgency Neurologic Neurologic: Reports dizziness, Denies syncope, Denies headache(s), Denies seizure-like activity and Denies weakness Allergic/Immunologic Allergic/Immunologic: Denies wheezing PFSH All Active Problems (Updated 10/08/21 @ 09:44 by Vasu Peraza MD) RBBB (Acute) Chest pain (Acute) Sensorineural hearing loss of both ears (Acute) Tinnitus (Acute) Abnormal auditory perception (Acute) PVD (peripheral vascular disease) (Chronic) Ptosis, left eyelid (Acute) Essential tremor (Chronic) Surgical History Coronary artery Bypass Graft 2 vessel S/P anal fissurectomy S/P appendectomy S/P femoropopliteal bypass surgery Family History Mother Heart disease Social History Smoking/Tobacco Use Status: Former Tobacco Use Smoking risk assessment performed?: Yes Alcohol Intake: never Drug use: Never 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 Do you feel safe in your relationship?: Yes Meds Allergies and Home Medications Allergies Allergy/AdvReac Type Severity Reaction Status Date / Time [id number] Reductase AdvReac Intermediate Other (See Unverified 10/08/21 00:44 Inhibitor Comment) [Cchrsnj-Dik-Tsk Reductase Inhibitor] Home Medications Medication Instructions Recorded Confirmed Type Isosorbide Mononitrate 60 mg PO DAILY tab-cap 10/22/13 10/08/21 History albuterol sulfate 90 mcg/actuation 1 - 2 puff INHALATION Q6H PRN PRN 10/22/13 10/08/21 History aerosol inhaler (Ventolin HFA) inhaler aspirin 81 mg tablet,delayed 81 mg PO DAILY tab-cap 10/22/13 10/08/21 History release (Aspir-) clopidogrel 75 mg tablet (Plavix) 75 mg PO DAILY tab-cap 10/22/13 10/08/21 History furosemide 20 mg tablet 20 mg PO DAILY tab-cap 10/22/13 10/08/21 History glipizide 5 mg tablet 5 mg PO DAILY tab-cap 10/22/13 10/08/21 History lisinopril 20 mg tablet 20 mg PO DAILY tab-cap 10/22/13 10/08/21 History nitroglycerin 0.4 mg sublingual 0.4 mg SUBLINGUAL ONCE PRN tab-cap 10/22/13 10/08/21 History tablet (Nitrostat) metformin 500 mg tablet 500 mg PO BID tab-cap 11/06/14 10/08/21 History acetaminophen 650 mg 650 mg PO PRN PRN 12/08/15 10/08/21 History tablet,extended release (Arthritis Pain Reliever) ezetimibe 10 mg tablet 10 mg PO DAILY 05/15/18 10/08/21 History metoprolol succinate 100 mg 100 mg PO DAILY 05/15/18 10/08/21 History tablet,extended release 24 hr lopdkkbstxwr-xmj-ukovl acid-vit 1 tab PO DAILY 11/29/18 10/08/21 History K-lycop 400 mcg-20 mcg-370 mcg tablet (Men's 50 Plus Multivitamin) omega-3 fatty acids-fish oil 360 1 cap PO DAILY 11/29/18 10/08/21 History mg-1,200 mg capsule (Fish Oil) abiraterone 250 mg tablet 1,000 mg PO DAILY 10/08/21 10/08/21 History empagliflozin 25 mg tablet 12.5 mg PO DAILY 10/08/21 10/08/21 History pantoprazole 20 mg tablet,delayed 20 mg PO DAILY 10/08/21 10/08/21 History release prednisone 5 mg tablet 5 mg PO DAILY 10/08/21 10/08/21 History Exam Const General: cooperative, not healthy appearing, no acute distress and disheveled Nutritional Appearance: overweight HENMT Head: abnormal to inspection (he has a scab or his left forehead from a recent skin biopsy. No infection.) and no palpable skull fracture Eyes General: appearance normal, both eyes and all related structures Neck Neck: normal visual inspection, no lymphadenopathy and no JVD Resp Auscultation: clear to auscultation bilaterally, no rales, no rhonchi and no wheezes Cardio Rate: regular rate Rhythm: regular rhythm Heart Sounds: S1 normal, S2 normal, no gallops and no murmurs GI Palpation: soft, no hepatosplenomegaly, not firm and nontender Neuro General: patient alert, patient awake and patient oriented x3 Extrem General: normal to inspection, no calf tenderness bilaterally, no cyanosis and no edema Results Labs Result diagrams: 10/07/21 22:56 10/07/21 22:56 Labs: Laboratory Results - last 24 hr 10/07/21 10/07/21 10/08/21 22:56 22:56 00:09 WBC 8.06 RBC 3.94 L Hgb 11.8 L Hct 36.7 L MCV 93 MCH 29.9 MCHC 32.2 RDW 15.6 H Plt Count 212 MPV 9.5 Immature Gran % 0.9 Neutrophils % 57.8 Lymphocytes % 31.1 Monocytes % 6.9 Eosinophils % 2.6 Basophils % 0.7 Nucleated RBC % 0.0 Absolute Neutrophils 4.65 Absolute Lymphocytes 2.51 Absolute Monocytes 0.56 Absolute Eosinophils 0.21 Absolute Basophils 0.06 Sodium 137 Potassium 4.0 Chloride 99 Carbon Dioxide 29.8 Anion Gap 8.2 BUN 19 H Creatinine 1.2 Estimated GFR/1.73 m2 59.02 Glucose 137 H Calcium 9.4 Magnesium 2.1 Total Bilirubin 0.3 AST 10 L ALT 24 Alkaline Phosphatase 35 L Troponin I < 50 NT-Pro-B Natriuret Pep 91 Total Protein 8.0 Albumin 4.0 COVID-19 Source Nasal/Nares SARS-CoV-2 (PCR) Negative 10/08/21 10/08/21 02:48 07:26 WBC RBC Hgb Hct MCV MCH MCHC RDW Plt Count MPV Immature Gran % Neutrophils % Lymphocytes % Monocytes % Eosinophils % Basophils % Nucleated RBC % Absolute Neutrophils Absolute Lymphocytes Absolute Monocytes Absolute Eosinophils Absolute Basophils Sodium Potassium Chloride Carbon Dioxide Anion Gap BUN Creatinine Estimated GFR/1.73 m2 Glucose Calcium Magnesium Total Bilirubin AST ALT Alkaline Phosphatase Troponin I < 50 < 50 NT-Pro-B Natriuret Pep Total Protein Albumin COVID-19 Source SARS-CoV-2 (PCR) Last Vital Signs Temp 36.4 C L 10/08/21 07:15 Pulse 66 10/08/21 07:15 Resp 18 10/08/21 07:15 BP 160/85 H 10/08/21 07:15 Pulse Ox 97 10/08/21 07:15
[2021-10-08] MEDS: amLODIPine 5 MG TAB PO (09:46)
--- NOTE | 2021-10-08 12:57 | DSE_ITS ---
Date of service: 10/08/21 Time of Service: 12:57 DS: Diagnosis Discharge Diagnosis (1) Chest pain: Status: Acute (2) Gastroesophageal reflux disease: Status: None (3) Diabetes mellitus: Status: None (4) RBBB: Status: Acute Discharge Plan Disposition Patient Disposition: HOME Condition: Improving Discharge Details Reason For Visit: Chest Pain Admit Date/Time: 10/08/21 00:54 Admit Provider: Vasu Peraza Attending Provider: Vasu Peraza Primary Care Provider: Chirag Tobar Hospital Course Hospital Course: This 76-year-old male admitted from ED last PM with CP. He states he was going to the bathroom, felt dizzy and he had a left-sided chest pain.? He took 3 sublingual nitroglycerin tablets with resolution.?He states it might have been Gerd, he also had gas. He had not had his soup previously.? He has a history of coronary artery disease with a coronary artery bypass about 10 years ago and stents placed in August 2010, May, and 2 stents in June 20 and 2012.? He says he used nitro about 2 to 3 weeks ago with resolution. He quit smoking cigarettes 20 years ago.? He uses alcohol very occasionally.? He has a history of prostate cancer and is currently receiving treatment for this.? He is pain free, no diff breathing. His troponins are negative, EKG is unremarkable, rate of 66 BPM, he does have a RBBB. He will have an out patient nuclear stress test. Home Meds and New Rx's Prescriptions: New amlodipine 5 mg Tablet 5 mg PO DAILY Qty: 30 0RF Continued omega-3 fatty acids-fish oil [Fish Oil] 360-1,200 mg capsule 1 cap PO DAILY 0RF Men's 50 Plus Multivitamin 400-20-370 mcg tablet 1 tab PO DAILY 0RF clopidogrel [Plavix] 75 MG tablet 75 mg PO DAILY 0RF aspirin [Aspir-81] 81 MG tablet,delayed release (DR/EC) 81 mg PO DAILY 0RF lisinopril 20 MG tablet 20 mg PO DAILY 0RF nitroglycerin [Nitrostat] 0.4 MG tablet, sublingual 0.4 mg Sublingual ONCE PRN0RF furosemide 20 MG tablet 20 mg PO DAILY 0RF albuterol sulfate [Ventolin HFA] 8 GM HFA aerosol inhaler 1 - 2 puff Inhalation Q6H PRN PRN0RF glipizide 5 MG tablet 5 mg PO DAILY 0RF ISOSORBIDE MONONITRATE 30 MG TAB.ER.24H 60 mg PO DAILY 0RF metformin 500 MG tablet 500 mg PO BID 0RF acetaminophen [Arthritis Pain Reliever] 650 MG tablet extended release 650 mg PO PRN PRN0RF metoprolol succinate 100 mg Tablet Extended Release 24 Hr 100 mg PO DAILY 0RF ezetimibe 10 mg Tablet 10 mg PO DAILY 0RF pantoprazole 20 mg Tablet,Delayed Release (Dr/Ec) 20 mg PO DAILY 0RF empagliflozin 25 mg Tablet 12.5 mg PO DAILY 0RF prednisone 5 mg Tablet 5 mg PO DAILY 0RF abiraterone 250 mg Tablet 1,000 mg PO DAILY 0RF Discharge Instructions Instructions: Amlodipine (By mouth), Chest Pain (DC) Additional Instructions: You will be contacted regarding an appointment for a nuclear stress test. Stand Alone Forms: Nursing Discharge Form Referrals: [facility] Radiology [Other] (Office will call you to make an appointment.) Marysol Car MD [ [facility] STAFF PHYSICIAN] - 11/29/21 1:00 pm (76yo M - CP, adm for obs, neg trops - OP stress test ordered. FU after stress test pls. Please scheduled stress test before this appointment. ) Chirag Tobar [Primary Care Provider] - (Office should give you a call to make a follow up appointment, if you do not hear from them please call to make a follow up appointment) Activity:: Activity as Tolerated Equipment/Supplies:: No Equipment Needed Diet:: Low Sodium Discharge Orders Discharge Orders: Discharge Order (Routine); Ordered 10/08/21 Ordered By: Natalie Rapp Other Ambulatory Orders: [facility] MPI rest & stress grp (Routine) Location: None Selected Ordered By: Natalie Rapp DS: Summary Time Spent with Patient providing and/or coordinating discharge services: Less than 30 minutes Status at Discharge Functional status at discharge: independent ambulation Overall status at discharge: patient is back to baseline Mental Status: mental status grossly normal Speech and Movement: speech and movement normal Mood: congruent mood Affect: normal affect Quality: AMI Clinical Trial Participant: No Exam Narrative Exam Narrative: General:?cooperative, healthy appearing, comfortable and no acute distress Orientation:?alert, awake and oriented x3 HEENT WNL Neck supple no JVD Resp Effort & Inspection:?normal respiratory effort and able to speak in complete sen tences Auscultation:?clear to auscultation bilaterally Cardio Rate:?regular rate Rhythm:?regular rhythm Heart Sounds:?S1 normal and S2 normal Pulses:?normal peripheral pulses ABD S ND NT Ext lower ext edema 1+ Neuro General:?patient alert, patient awake, patient oriented x3, moves all extremities and no focal motor deficits Extrem Right lower extremity:?knee, lower leg, ankle and foot Psych normal mood and affect Const General: cooperative, not healthy appearing, no acute distress and disheveled Nutritional Appearance: overweight HENMT Head: abnormal to inspection (he has a scab or his left forehead from a recent skin biopsy. No infection.) and no palpable skull fracture Eyes General: appearance normal, both eyes and all related structures Neck Neck: normal visual inspection, no lymphadenopathy and no JVD Resp Auscultation: clear to auscultation bilaterally, no rales, no rhonchi and no wheezes Cardio Rate: regular rate Rhythm: regular rhythm Heart Sounds: S1 normal, S2 normal, no gallops and no murmurs GI Palpation: soft, no hepatosplenomegaly, not firm and nontender Neuro General: patient alert, patient awake and patient oriented x3 Extrem General: normal to inspection, no calf tenderness bilaterally, no cyanosis and no edema Psych Mental Status: mental status grossly normal Speech and Movement: speech and movement normal Mood: congruent mood Affect: normal affect DS: Data Vitals/I&O Vitals and I&O: Vital Signs Temperature 36.5 C 10/08/21 11:10 Temperature Source Tympanic 10/08/21 11:10 Pulse 62 10/08/21 11:10 Pulse Rhythm Regular 10/08/21 09:16 Pulse 73 10/08/21 02:01 Respiratory Rate 16 10/08/21 11:10 Respiratory Effort 10/08/21 09:16 Respiratory Depth Normal 10/08/21 09:16 Respiratory Pattern Normal 10/08/21 09:16 Blood Pressure 128/66 10/08/21 11:10 Blood Pressure Mean 80 10/08/21 02:01 Blood Pressure Position Sitting 10/07/21 22:42 Pulse Oximetry 97 10/08/21 11:10 Oxygen Delivery Method Room Air 10/08/21 11:10 Oxygen Flow Rate 0 10/08/21 11:10 Pain Level 0 10/08/21 11:10 Intake & Output 10/07/21 10/08/21 10/08/21 23:59 11:59 23:59 Intake Total 520 / 520 Output Total 1800 / 1800 Balance -1280 / -1280 Weight 114.5 kg Intake: Oral 520 / 520 Output: Urine 1800 / 1800 Other: Urine Color Yellow Urine Appearance Clear Voiding Methods Toilet Data Completed and Pending Labs on day of discharge: Labs from last 24 hours 10/08/21 10/08/21 10/08/21 07:26 02:48 00:09 WBC RBC Hgb Hct MCV MCH MCHC RDW Plt Count MPV Immature Gran % Neutrophils % Lymphocytes % Monocytes % Eosinophils % Basophils % Nucleated RBC % Absolute Neutrophils Absolute Lymphocytes Absolute Monocytes Absolute Eosinophils Absolute Basophils Sodium Potassium Chloride Carbon Dioxide Anion Gap BUN Creatinine Estimated GFR/1.73 m2 Glucose Calcium Magnesium Total Bilirubin AST ALT Alkaline Phosphatase Troponin I < 50 < 50 NT-Pro-B Natriuret Pep Total Protein Albumin COVID-19 Source Nasal/Nares SARS-CoV-2 (PCR) Negative 10/07/21 10/07/21 22:56 22:56 WBC 8.06 RBC 3.94 L Hgb 11.8 L Hct 36.7 L MCV 93 MCH 29.9 MCHC 32.2 RDW 15.6 H Plt Count 212 MPV 9.5 Immature Gran % 0.9 Neutrophils % 57.8 Lymphocytes % 31.1 Monocytes % 6.9 Eosinophils % 2.6 Basophils % 0.7 Nucleated RBC % 0.0 Absolute Neutrophils 4.65 Absolute Lymphocytes 2.51 Absolute Monocytes 0.56 Absolute Eosinophils 0.21 Absolute Basophils 0.06 Sodium 137 Potassium 4.0 Chloride 99 Carbon Dioxide 29.8 Anion Gap 8.2 BUN 19 H Creatinine 1.2 Estimated GFR/1.73 m2 59.02 Glucose 137 H Calcium 9.4 Magnesium 2.1 Total Bilirubin 0.3 AST 10 L ALT 24 Alkaline Phosphatase 35 L Troponin I < 50 NT-Pro-B Natriuret Pep 91 Total Protein 8.0 Albumin 4.0 COVID-19 Source SARS-CoV-2 (PCR) Imaging Chest x-ray: Radiologist's impression: No acute pulmonary findings.There has been previous sternotomy. Lab and Radiology Reports: Laboratory Results WBC 8.06 10^3/uL (4.4-10.8) 10/07/21 22:56 RBC 3.94 10^6/uL (4.36-5.78) L 10/07/21 22:56 Hgb 11.8 g/dL (13.5-17.5) L 10/07/21 22:56 Hct 36.7 % (40.0-50.0) L 10/07/21 22:56 MCV 93 fL (80-95) 10/07/21 22:56 MCH 29.9 pg (27.0-33.0) 10/07/21 22:56 MCHC 32.2 % (32.0-36.0) 10/07/21 22:56 RDW 15.6 % (11.8-14.1) H 10/07/21 22:56 Plt Count 212 10^3/uL (130-400) 10/07/21 22:56 MPV 9.5 fL (8.0-11.0) 10/07/21 22:56 Immature Gran % 0.9 10/07/21 22:56 Neutrophils % 57.8 10/07/21 22:56 Lymphocytes % 31.1 10/07/21 22:56 Monocytes % 6.9 10/07/21 22:56 Eosinophils % 2.6 10/07/21 22:56 Basophils % 0.7 10/07/21 22:56 Nucleated RBC % 0.0 % (0.0-0.3) 10/07/21 22:56 Absolute Neutrophils 4.65 10^3/uL (1.2-6.7) 10/07/21 22:56 Absolute Lymphocytes 2.51 10^3/uL (1.2-3.4) 10/07/21 22:56 Absolute Monocytes 0.56 10^3/uL (0.1-0.8) 10/07/21 22:56 Absolute Eosinophils 0.21 10^3/uL (0.0-0.7) 10/07/21 22:56 Absolute Basophils 0.06 10^3/uL (0.0-0.2) 10/07/21 22:56 Sodium 137 mmol/L (136-145) 10/07/21 22:56 Potassium 4.0 mmol/L (3.5-5.1) 10/07/21 22:56 Chloride 99 mmol/L (98-107) 10/07/21 22:56 Carbon Dioxide 29.8 mmol/L (21.0-32.0) 10/07/21 22:56 Anion Gap 8.2 mmol/L (3-11) 10/07/21 22:56 BUN 19 mg/dL (7-18) H 10/07/21 22:56 Creatinine 1.2 mg/dL (0.70-1.30) 10/07/21 22:56 Estimated GFR/1.73 m2 59.02 (mL/min/1.73m2) 10/07/21 22:56 Glucose 137 mg/dL (74-106) H 10/07/21 22:56 Calcium 9.4 mg/dL (8.5-10.1) 10/07/21 22:56 Magnesium 2.1 mg/dL (1.8-2.4) 10/07/21 22:56 Total Bilirubin 0.3 mg/dL (0.2-1.0) 10/07/21 22:56 AST 10 U/L (15-37) L 10/07/21 22:56 ALT 24 U/L (16-63) 10/07/21 22:56 Alkaline Phosphatase 35 U/L (46-116) L 10/07/21 22:56 Troponin I < 50 ng/L (<or=60) 10/08/21 07:26 NT-Pro-B Natriuret Pep 91 pg/mL (<300) 10/07/21 22:56 Total Protein 8.0 g/dL (6.4-8.2) 10/07/21 22:56 Albumin 4.0 g/dL (3.4-5.0) 10/07/21 22:56 COVID-19 Source Nasal/Nares 10/08/21 00:09 SARS-CoV-2 (PCR) Negative (Negative) 10/08/21 00:09 PFSH All Active Problems RBBB (Acute) Chest pain (Acute) Sensorineural hearing loss of both ears (Acute) Tinnitus (Acute) Abnormal auditory perception (Acute) PVD (peripheral vascular disease) (Chronic) Ptosis, left eyelid (Acute) Essential tremor (Chronic) Surgical History Coronary artery Bypass Graft 2 vessel S/P anal fissurectomy S/P appendectomy S/P femoropopliteal bypass surgery Family History Mother Heart disease Social History Smoking/Tobacco Use Status: Former Tobacco Use Smoking risk assessment performed?: Yes Alcohol Intake: never Drug use: Never 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 Do you feel safe in your relationship?: Yes
--- NOTE | 2021-10-08 17:23 | PDOC.CMDIS ---
- If Service Date Differs Date of service: 10/08/21 Time of Service: 17:23 LACE Index Scoring Tool - Questions: Length of Stay (in days): 1 Acuity (Admit via E.D.?): Yes Comorbidities: Previous M.I., PVD E.D. Visits: 1 - Answers: Total Score: 7 Risk of Readmission: Low Risk Care Management Discharge Reason for Hospitalization: chest pain Discharge Plan: Joel will be discharged home with no new services. He will follow up with his community providers and plan of care and transport with his partner. Patient/Family Education Needs: Review of discharge instructions, limitations, follow up plan, activity, and Ask Me Three
== END 2021-10-08 14:10 | disposition home or self-care (01) ==
LOC: ER 10-08 01:13 → MS 10-08 02:11
PROVIDERS: Emergency Medicine; Admitting Provider Family Medicine; Emergency Provider Student in an Organized Health Care Education/Training Program; PCP Physician Assistant Medical; Visit Provider Family Medicine
DX: R07.89 Other chest pain (principal); E11.9 Type 2 diabetes mellitus without complications; R60.0 Localized edema; I45.10 Unspecified right bundle-branch block; I25.10 Atherosclerotic heart disease of native coronary artery without angina pectoris; Z95.5 Presence of coronary angioplasty implant and graft; I73.9 Peripheral vascular disease, unspecified; G25.0 Essential tremor; H90.3 Sensorineural hearing loss, bilateral; Z95.1 Presence of aortocoronary bypass graft; Z87.891 Personal history of nicotine dependence; K21.9 Gastro-esophageal reflux disease without esophagitis; Z20.822 Contact with and (suspected) exposure to COVID-19; Z79.84 Long term (current) use of oral hypoglycemic drugs
CPT/HCPCS: 36415; 80053; 87635; 93005; 99285; U0005; 71046; 83735; 83880; 84484; 85025; 93010; 99235

== ENCOUNTER 2021-11-29 08:30 | Outpatient (CLI) | payer OTHER, SELFPAY ==
--- NOTE | 2021-11-29 08:30 | RT.EKG_ITS ---
APPROVED REPORT Exam: Resting ECG Reason for Exam: ASCVD Patient Location: O HR:65 bpm ECG Measurements Heart Rate 65 AXIS NE 164 P 30 QRSd 146 QRS -22 QT 447 T 126 QTc 465 Conclusion Sinus rhythm...normal P axis, V-rate 50- 99 Right bundle branch block...QRSd>120, terminal axis(90,270) LVH with repolarization abnormalities
== END 2021-11-29 08:31 | disposition home or self-care (01) ==
LOC: DI.CARD 08:31
PROVIDERS: PCP Physician Assistant Medical; Visit Provider Internal Medicine Cardiovascular Disease
DX: I45.10 Unspecified right bundle-branch block (principal); R94.31 Abnormal electrocardiogram [ECG] [EKG]
CPT/HCPCS: 93010

== ENCOUNTER → 2021-12-13 01:26 | Outpatient (CLI) | payer OTHER, SELFPAY ==
--- NOTE | 2021-12-13 11:00 | DI.NM_ITS ---
APPROVED REPORT Exam: Exercise Treadmill Patient Location: Out-Patient Room/Bed: Stress Nurse: Lelia Domínguez RN Ordering Provider:KENDALL JARA, Contact Number: [phone] BMI: 38.73 Baseline Rhythm: Sinus Rhythm, RBBB Comment: inverted T waves leads aVL and V2 Indications: CHEST PAIN, H/O METASTATIC PROSTATE CANCER, CORONARY ARTERY DISEASE Medical History Medical History: PVD, HLD, HTN, MASOOD, RBBB, Acute DE, ASCVD, Morbid obesity, DM II, Hx of tobacco abus e, Prostate CA. Cardiac Medications: Pantoprazole, Nitro, Metoprolol succinate, Metformin, Lisinopril, Furosemide, Pl avix, Aspirin, Amlodipine, Albuterol, Ezetimibe. Allergies: Statins Cardiac Risk Factors: FHX of CAD, HTN, Hyperlipidemia, Diabetes (non-insulin), Smoking (former), Obes ity, PVD, CVD Previous Cardiac Procedures: CABG (about 8 years ago); PCI w/ stent placement Pretest Chest Pain Characteristics: No chest pain Exercise History: Sedentary Physical Disabilities: Legs Lung Sounds: Clear to auscultation Heart Sounds: Regular Stress Test Details Test: Exercise stress testing was performed using a modified Donn protocol. Nuclear Acquisition: Rest Tc-99m/Stress Tc-99m 1 day Rest Isotope: Tc-99m Sestamibi. Dose: 11.5 Date: 12/13/2021 Injection Time: 1100 Stress Isotope: Tc-99m Sestamibi. Dose: 37.0 Date: 12/13/2021 Injection Time: 1311 HR Resting HR Supine: 72 bpm Max Heart Rate (APMHR): 145.756096 bpm Resting HR Standin bpm Target HR (85% APMHR): 123.381014 bpm Max HR Achieved: 156 bpm % of APMHR: 107.59 Recovery HR: 96 bpm HR response to stress: Normal HR response to stress Comment: Metoprolol succinate held for 24 hrs prior to test. BP Resting BP Supine: 122/54 mmHg Resting BP Standin/58 mmHg Max BP: 126/60 mmHg Recovery BP: 122/64 mmHg BP response to stress: Normal blood pressure response to stress. ECG Resting ECG: Sinus Rhythm, RBBB Ectopy: None Comment: inverted T waves in leads aVL and V2 Stress ECG: Sinus Tachycardia ST Change: No significant ST segment changes noted Arrhythmia: None Comment: inverted T waves in leads aVL and V2 Recovery ECG: Sinus tachycardia Recovery ST Change: Downsloping ST depression Lead(s): I, II, V3, V4, V5 Recovery ST Deviation: 2-3 mm Recovery Arrhythmia: PACs Comment: inverted T waves in leads aVL and V2. ST changes returning to baseline by minute 16 of recov jarred. Clinical Reason for Termination: Fatigue, Dyspnea Stress Symptoms: Chest pain, Leg Fatigue, General Fatigue, Dyspnea Exercise duration: 6 min26 sec Highest Stage Reached: Stage 0.5: 1.7 mph at 5% grade. Exercise capacity: 3.47 METs Amor Treadmill Score: 0.6 Rate Pressure Product: [id number] Stress ECG Conclusion 1. Resting electrocardiogram showed right bundle branch block 2. Patient underwent exercise testing using the modified Donn protocol. He completed a workload of 3.47 METS 3. Accelerated heart rate response to exercise. Greater than 100% of predicted heart rate for age wa s achieved. Normal blood pressure response to exercise 4. The electrocardiographic portion of the test was nondiagnostic due to resting ST-T abnormalities 5. See MPI report Amor Treadmill Score is 0.6 which is Moderate risk. Stress Test Summary STAGE Time (mins) Speed (mph) Grade (%) HR BP SpO2 SYMPTOMS METS 0 3 1.7 0 109 112/58 2.3 1/2 6 1.7 5 125 126/60 SpO2 95%. Pt reports moderate SOB. 3.4 1 min recovery 126 118/60 8/10 Throbbing chest pressure 3 min recovery 112 112/58 8/10 Throbbing chest pressure, jaw pain. 6 min recovery 104 118/64 Jaw pain resolved. 7/10 throbbing chest pressure 9 min recovery 104 122/66 4/10 chest pressure 12 min recovery 104 110/62 1/10 chest pressure Supine 72 122/54 Standing 84 112/58 SpO2 96% Treadmill settings modified in stage 1/2 to encourage continuation of exercise. During recovery, rahul ent reports an 8/10 throbbing chest pressure, left sternal border. Patient initially denies associate d symptoms, then a couple minutes later reports pain radiating to jaw. Jaw pain is decreasing/resolve d by 6 min recovery, but chest pressure remains consistent. Patient wonders if it has to do with refl ux, and asks if he may sit up. Stretcher is repostioned into upright position and by 10 min recovery chest pressure has decreased to 4/10. Patient then repositioned to sitting on the side of the stretch er and reports 1/10 chest pressure. Chest pressure resolved by minute [address] seg ment changes noted to be returning to baseline by minute 16. MPI Conclusion Myocardial perfusion is abnormal. There is ischemia of the posterior lateral wall. There may be mil d anteroapical ischemia as well EF 49% Radiologist Interpretation Radiologist agrees with Aids Social Worker's Interpretation. Radiologist Interpretation by: Ludwin Randall MD Interpretation Date/Time: 12/15/2021 17:03:04
== END ==
PROVIDERS: PCP Physician Assistant Medical; Visit Provider Occupational Therapist
DX: I25.10 Atherosclerotic heart disease of native coronary artery without angina pectoris (principal); R07.89 Other chest pain
CPT/HCPCS: 78452; 93017

== ENCOUNTER 2022-01-07 01:51 | Outpatient (CLI) | payer OTHER, SELFPAY ==
[2022-01-07 10:55] LABS: Abs Immature Grans 0.05 10^3/uL (0.0-0.06); Absolute Basophil Count 0.04 10^3/uL (0.0-0.2); Absolute Eosinophil Count 0.16 10^3/uL (0.0-0.7); Absolute Lymphocyte Count 1.74 10^3/uL (1.2-3.4); Absolute Monocyte Count 0.44 10^3/uL (0.1-0.8); Absolute Neutrophil Count 4.86 10^3/uL (1.2-6.7); Basophils % 0.5; Eosinophils % 2.2; HCT 34.6 % (40.0-50.0); HGB 11.4 g/dL (13.5-17.5); Immature Grans % 0.7; Lymphocytes % 23.9; MCHC 32.9 % (32.0-36.0); MCV 91 fL (80-95); MPV 9.2 fL (8.0-11.0); Neutrophils % 66.7; Platelet Count 218 10^3/uL (130-400); RDW 15.9 % (11.8-14.1); RDW-SD 52.1 fL; WBC 7.29 10^3/uL (4.4-10.8)
[2022-01-07 11:10] LABS: Anion Gap 9.4 mmol/L (3-11); BUN 16 mg/dL (7-18); CO2 27.6 mmol/L (21.0-32.0); CREATININE 1.1 mg/dL (0.70-1.30); Chloride 101 mmol/L (98-107); Glucose 143 mg/dL (74-106); Potassium 4.6 mmol/L (3.5-5.1); Sodium 138 mmol/L (136-145)
[2022-01-07 11:11] LABS: PTT Activated 25.4 sec (21.0-27.5); Prothrombin Time 10.4 sec (9.3-11.0)
== END 2022-01-07 01:52 | disposition home or self-care (01) ==
LOC: LBO 01:51
PROVIDERS: PCP Physician Assistant Medical; Visit Provider Internal Medicine Cardiovascular Disease
DX: I25.10 Atherosclerotic heart disease of native coronary artery without angina pectoris (principal); R94.39 Abnormal result of other cardiovascular function study; I10 Essential (primary) hypertension; E11.9 Type 2 diabetes mellitus without complications; Z95.1 Presence of aortocoronary bypass graft; Z01.812 Encounter for preprocedural laboratory examination
CPT/HCPCS: 36415; 80051; 82947; 84520; 82565; 85025; 85610; 85730

== ENCOUNTER → 2022-03-15 14:38 | Outpatient (BNVA) | payer MEDICARE, SELFPAY | PROVIDERS: PCP Physician Assistant Medical; Referring Provider Physician Assistant Medical; Visit Provider Internal Medicine Cardiovascular Disease | DX: I25.810 Atherosclerosis of coronary artery bypass graft(s) without angina pectoris (principal); I10 Essential (primary) hypertension; Z95.1 Presence of aortocoronary bypass graft; Z95.5 Presence of coronary angioplasty implant and graft | CPT/HCPCS: 99214 ==

== ENCOUNTER 2022-05-12 12:21 | Outpatient (CLI) | payer MEDICARE, SELFPAY ==
[2022-05-13 16:51] LABS: PSA, Ultrasensitive <0.01 ng/mL (<= 6.5)
== END 2022-05-12 12:22 | disposition home or self-care (01) ==
LOC: LBO 12:24
PROVIDERS: PCP Physician Assistant Medical; Visit Provider Radiology Radiation Oncology
DX: C61 Malignant neoplasm of prostate (principal)
CPT/HCPCS: 36415; 84153